=== PATIENT | female | born 1950 | race Caucasian/White ===

== ENCOUNTER 2016-05-28 09:14 | Day surgery (SDC) | payer MEDICARE ==
--- NOTE | ~2016-05-28 | OP ---
Record Of Operation [facility] [address] [place]. [address] NAME: BRITTANY MARC : 52 STATUS : [place] [facility] PAT#: [id number] AGE: 66 ADM/REG DATE : 05/28/16 MR#: [id number] REPORT SERV DATE: 05/28/16 DICTATED BY: RAMIN WHEELER DATE: 05/28/16 REPORT STATUS : Draft TRANSCRIBED BY: MODL DATE: 05/28/16 DATE OF PROCEDURE: 05/28/2016 PREOPERATIVE DIAGNOSIS: Bladder tumor. POSTOPERATIVE DIAGNOSIS: Bladder tumor. PROCEDURE PERFORMED: Cystoscopy, TURBT. SURGEON: Ramin Wheeler M.D. ANESTHESIA: General. ESTIMATED BLOOD LOSS: 10 mL. INDICATIONS: This is a 66-year-old white female with a history of gross hematuria, who has recently been referred for a 2 to 2.5 cm bladder tumor noted on CT scan. We are planning cystoscopy as well as TURBT. Risks of infection, bleeding, failure, and need for further surgery have been discussed. PROCEDURE IN DETAIL: The patient was taken to the operating room and underwent a general anesthetic. She was placed in the lithotomy position on the table, and her external genitalia were sterilely prepped and draped. The 22-S[place]ankan cystoscope sheath with 30-degree lens was inserted under direct vision per urethra with the aid of the video monitor. The urine in the bladder was bloody and had to be irrigated a few times to improve visibility. Single orifices were seen bilaterally and looked normal. There was a moderate cystocele. There was a solid-looking nonpapillary tumor on the anterior bladder wall measuring about 2.5 cm in size. This was broad based and had some necrotic portions. Outside of this, the remainder of the bladder mucosa looked normal throughout. The urethra was also inspected and was felt to be normal. The urethra was then dilated to 30-Sri Lankan using female sounds and the 28-Sri [place]ankan resectoscope sheath with Culloden obturator was advanced up into the bladder without difficulty. The hot loop was used to resect all of the visible portions of the tumor. It was difficult to determine whether the entire tumor had been resected as I carried the resection as deeply as I dared into the wall of the bladder without perforation. Following resection of the tumor, the entire resection bed was thoroughly fulgurated with the rollerball. I should mention that there was very minimal bleeding. Inspection of the wound revealed there to be no areas of bleeding. No overt visible protruding tumor was noted at this stage. There were no bladder perforations. The remainder of the bladder was reinspected with no new findings. The Invision Heart evacuator was used to remove all tumor chips from the bladder and the endoscopic apparatus was removed. An 18-S[place]ankan Awan catheter was placed to gravity drainage. A brief bimanual pelvic exam revealed a palpably normal urethra, bladder neck area, and right bladder wall. There was a question of some thickening of the left bladder. It was mobile; however, and not fixed. Record Of Operation [facility] [address] [facility] [place]. [address] NAME: BRITTANY MARC : 52 STATUS : [place] [facility] PAT#: [id number] AGE: 66 ADM/REG DATE : 05/28/16 MR#: [id number] REPORT SERV DATE: 05/28/16 DICTATED BY: RAMIN WHEELER DATE: 05/28/16 REPORT STATUS : Draft TRANSCRIBED BY: KARAN DATE: 05/28/16 SHANE/KARAN Ramin Wheeler M.D. / [id number] CC: Renae Dietrich M.D.
[~2016-05-28 09:14] MED LIST: COMBIVENT RESPIM4 GM INH; COZ25 PO; CYMBALTA30 PO; DULERA 100 MCG/13 GM INH; MOBIC7.5 PO; PRILOSEC40 MG PO
[2016-05-28 09:50] LABS: BASOPHILS 0.4 %; BASOPHILS ABSOLUTE 0.03 10/3/uL (0.0-0.16); EOSINOPHILS 0.4 %; EOSINOPHILS ABSOLUTE 0.03 10/3/uL (0.0-0.53); HEMATOCRIT 38.2 % (36.0-48.0); HEMOGLOBIN 13.3 g/dL (12.0-16.0); IMMATURE GRANULOCYTES 0.3 %; IMMATURE GRANULOCYTES ABSOLUTE 0.02 10/3/uL (0.0-0.11); LYMPHOCYTES 26.3 %; LYMPHOCYTES ABSOLUTE 1.83 10/3/uL (0.67-4.30); MEAN CORPUS HGB CONC 34.8 g/dL (32.0-36.0); MEAN CORPUSCULAR HEMOGLOB 33.3 pg (26.0-34.0); MEAN CORPUSCULAR VOLUME 95.5 fL (80-100); MEAN PLATELET VOLUME 8.9 fL (9.2-13.0); MONOCYTES 10.2 %; MONOCYTES ABSOLUTE 0.71 10/3/uL (0.21-1.20); NEUTROPHILS 62.4 %; NEUTROPHILS ABSOLUTE 4.34 10/3/uL (2.02-8.40); PLATELET COUNT 172 10/3/uL (150-400); RBC DISTRIBUTION WIDTH 12.6 % (12.0-16.0)
[2016-05-28 09:51] LABS: MANUAL DIFF NO %
[2016-05-28 09:55] LABS: PARTIAL THROMBO TIME 29.8 SEC (22.5-37.2); PROTIME (NOT ORD) 13.5 SEC (12.0-14.5)
[2016-05-28 10:08] LABS: BUN (BLOOD UREA NITROGEN) 13 MG/DL (6-23); CHLORIDE, SERUM 102 MMOL/L (96-112); CO2 (CARBON DIOXIDE) 28 MMOL/L (24-34); CREATININE 1.14 MG/DL (0.55-1.02); GFR AFRICAN AMERICAN 58 ML/MIN (>=60); GFR NON AFRICAN AMERICAN 50 ML/MIN (>=60); GLUCOSE, SERUM 127 MG/DL (60-99); POTASSIUM, SERUM 4.6 MMOL/L (3.5-5.3); SODIUM, SERUM 140 MMOL/L (135-148)
[2016-06-19] MEDS ORDERED: PROAIR HFA INH (11:23)
[2016-06-19] MEDS ORDERED: ZANAFLEX 4 MG TA4 MG PO (11:24)
[2016-06-19] MEDS ORDERED: 8 HOUR650 MG PO (11:24)
== END 2016-05-28 17:18 | disposition home or self-care (01) ==
LOC: SDC 09:14
PROVIDERS: Urology
PROC: 0TBB8ZZ Excision of Bladder, Via Natural or Artificial Opening Endoscopic (ICD-10-PCS; principal; 2016-05-28 11:00)
DX: C67.9 Malignant neoplasm of bladder, unspecified (principal); I10 Essential (primary) hypertension; J45.909 Unspecified asthma, uncomplicated; F41.9 Anxiety disorder, unspecified; K21.9 Gastro-esophageal reflux disease without esophagitis; Z90.89 Acquired absence of other organs; M19.90 Unspecified osteoarthritis, unspecified site; Z88.2 Allergy status to sulfonamides; Z88.5 Allergy status to narcotic agent; Z87.891 Personal history of nicotine dependence; Z79.899 Other long term (current) drug therapy
CPT/HCPCS: 71010; 80048; 85025; 85610; 85730; 88307; 88341; 88342; 93005; A9270-GY; J2250; J2370; J2405; J2710; J3010; J9280; Q9967

== ENCOUNTER 2016-06-30 06:41 | Inpatient (IN) | payer MEDICARE ==
[2016-06-22 15:36] LABS: BASOPHILS 0.4 %; BASOPHILS ABSOLUTE 0.02 10/3/uL (0.0-0.16); EOSINOPHILS 1.2 %; EOSINOPHILS ABSOLUTE 0.06 10/3/uL (0.0-0.53); HEMATOCRIT 35.1 % (36.0-48.0); HEMOGLOBIN 11.8 g/dL (12.0-16.0); IMMATURE GRANULOCYTES 0.2 %; IMMATURE GRANULOCYTES ABSOLUTE 0.01 10/3/uL (0.0-0.11); LYMPHOCYTES 41.5 %; LYMPHOCYTES ABSOLUTE 2.03 10/3/uL (0.67-4.30); MEAN CORPUS HGB CONC 33.6 g/dL (32.0-36.0); MEAN PLATELET VOLUME 8.9 fL (9.2-13.0); MONOCYTES 7.2 %; MONOCYTES ABSOLUTE 0.35 10/3/uL (0.21-1.20); NEUTROPHILS 49.5 %; NEUTROPHILS ABSOLUTE 2.42 10/3/uL (2.02-8.40); PLATELET COUNT 187 10/3/uL (150-400); RBC DISTRIBUTION WIDTH 12.7 % (12.0-16.0); RED CELL COUNT 3.58 10/6/uL (4.0-5.6); WHITE BLOOD CELLS 4.9 10/3/uL (4.5-10.5)
[2016-06-22 15:37] LABS: MANUAL DIFF NO %
[2016-06-22 15:40] LABS: PARTIAL THROMBO TIME 27.5 SEC (22.5-37.2)
[2016-06-22 15:49] LABS: BUN (BLOOD UREA NITROGEN) 13 MG/DL (6-23); CALCIUM, SERUM 10.1 MG/DL (8.5-10.4); CHLORIDE, SERUM 103 MMOL/L (96-112); CO2 (CARBON DIOXIDE) 24 MMOL/L (24-34); CREATININE 0.97 MG/DL (0.55-1.02); GFR AFRICAN AMERICAN 71 ML/MIN (>=60); GFR NON AFRICAN AMERICAN 61 ML/MIN (>=60); GLUCOSE, SERUM 83 MG/DL (60-99); POTASSIUM, SERUM 4.4 MMOL/L (3.5-5.3); SODIUM, SERUM 138 MMOL/L (135-148)
--- NOTE | ~2016-06-30 | HP ---
History And Physical [facility] [id number] [place]. [address] NAME: BRITTANY MARC : 52 STATUS : [facility]M [facility]#: [id number] AGE: 66 ADM/REG DATE : 06/30/16 MR#: [id number] REPORT SERV DATE: 06/30/16 DICTATED BY: SUDHAKAR BECK DATE: 06/30/16 REPORT STATUS : Draft TRANSCRIBED BY: MODL DATE: 06/30/16 DATE OF ADMISSION: 06/30/2016 CHIEF COMPLAINT: Bladder cancer, T2 N0. HISTORY OF PRESENT ILLNESS: Ms. Marc is a 66-year-old who had intermittent gross hematuria for several months. This was painless. She was evaluated with a renal bladder ultrasound. A CT scan showed a solid enhancing bladder mass along the anterior wall. Dr. Shayan Justice performed transurethral resection of bladder tumor on 05/28/2016. Unfortunately, this showed high-grade muscle-invasive bladder cancer with glandular differentiation. Lymphovascular invasion was present as well as muscularis propria invasion. She feels well. She denies back pain or weight loss. There was no adenopathy or hydronephrosis on staging CT. PAST MEDICAL HISTORY: Hypertension, asthma, osteoarthritis, Nnppa-Lrmec-Trxwo syndrome. ALLERGIES: SULFA AND CODEINE. SOCIAL HISTORY: . Quit smoking 30 years ago. MEDICATIONS: Losartan, omeprazole, Combivent, duloxetine, albuterol inhaler. REVIEW OF SYSTEMS: No fevers, chills, nausea, vomiting, flank pain, hydronephrosis, chest pain, or shortness of breath. PHYSICAL EXAMINATION: VITAL SIGNS: Vitals per intake sheet. Afebrile. GENERAL: A pleasant 66-year-old, in no acute distress. HEENT: Sclerae anicteric. LUNGS: Clear. HEART: Regular rhythm. CHEST: Clear anteriorly. ABDOMEN: Soft, nontender, nondistended. No palpable mass. Right-sided stomal site is marked by a wound nurse at approximately the level of the umbilicus to the right of midline. EXTREMITIES: No lower extremity edema. LABORATORY DATA: Alkaline phosphatase was normal. LFTs are normal. Hematocrit 35, platelets 187. Creatinine 0.97. IMAGING: CT scan dated 05/14/2016 shows a left anterior wall bladder mass, no retroperitoneal adenopathy. PATHOLOGY: TURBT from 05/28/2016 shows muscle-invasive high-grade urothelial cancer with glandular differentiation. There was muscularis propria invasion and lymphovascular invasion. History And Physical [address] [address] NAME: BRITTANY MARC : 52 STATUS : ADM IN PAT#: [id number] AGE: 66 ADM/REG DATE : 06/30/16 MR#: [id number] REPORT SERV DATE: 06/30/16 DICTATED BY: SUDHAKAR BECK DATE: 06/30/16 REPORT STATUS : Draft TRANSCRIBED BY: KARAN DATE: 06/30/16 IMPRESSION: Bladder cancer, high-grade T2 N0 M0. PLAN: Ms. Marc presents for radical cystectomy with pelvic lymphadenectomy and en bloc hysterectomy. She understands the risk of bleeding, infection, wound complications, stomal complication, urine leak, ileus, tumor recurrence, and anastomotic stricture. She and her agree to proceed. [facility]/KARAN Sudhakar Beck M.D. / [id number] CC: Renae Spence M.D.
--- NOTE | ~2016-06-30 | OP ---
Record Of Operation [facility] [address] [place]. [address] NAME: BRITTANY MARC : 52 STATUS : ADM IN PAT#: [id number] AGE: 66 ADM/REG DATE : 06/30/16 MR#: [id number] REPORT SERV DATE: 06/30/16 DICTATED BY: SUDHAKAR BECK DATE: 06/30/16 REPORT STATUS : Draft TRANSCRIBED BY: MODL DATE: 06/30/16 DATE OF PROCEDURE: 06/30/2016 PREOPERATIVE DIAGNOSIS: Bladder cancer, T2, N0, M0. POSTOPERATIVE DIAGNOSIS: Bladder cancer, T2, N0, M0. PROCEDURE PERFORMED: 1. Radical cystectomy. 2. Bilateral pelvic lymphadenectomy. 3. Ileal conduit urinary diversion. SURGEON: Sudhakar Beck M.D. ANESTHESIA: General. COMPLICATIONS: A small vaginotomy was closed primarily. SPECIMEN: 1. Bladder. 2. Right and left pelvic lymph nodes (obturator and internal iliac). ESTIMATED BLOOD LOSS: 600 mL. DRAINS: 1. NG tube. 2. Bilateral 7-[place] ureterointestinal anastomotic stent. 3. Pantera-Simmons. INDICATION: Mrs. Marc is a 66-year-old with gross hematuria. She was found to have a high grade muscle invasive bladder cancer with glandular differentiation. She presents for radical cystectomy. I discussed removing the uterus en block, the bladder mobilized easily off the anterior vaginal wall. Anterior tumor was on the anterior wall of the bladder as such, en block hysterectomy was unnecessary. TECHNIQUE: She received Mefoxin in the preop. She was brought to the operating room. General endotracheal anesthesia was administered. The lower abdomen, genitals and perineum were shaved, prepped, and draped in the lithotomy position. A Awan catheter was placed,this was 16-[place] Korean. I re-gloved. A lower midline incision was made from the umbilicus to the pubic symphysis. There was copious subcutaneous fat,this was divided with Bovie. The abdominal wall fascia was divided in the midline. The peritoneal cavity was entered. There was copious intraperitoneal fat. There were only minimal adhesions between the sigmoid and the uterus. Lower abdominal contents were all unremarkable. The bowel were packed superiorly. Adhesions between the redundant sigmoid colon and the posterior cul-de- sac were divided sharply. I developed the anterior peritoneal reflection, including the urachus, the urachus were divided. The retropubic space was mobilized with blunt Record Of Operation [facility] [id number] [place]. [address] NAME: BRITTANY MARC : 52 STATUS : ADM IN PAT#: [id number] AGE: 66 ADM/REG DATE : 06/30/16 MR#: [id number] REPORT SERV DATE: 06/30/16 DICTATED BY: SUDHAKAR BECK DATE: 06/30/16 REPORT STATUS : Draft TRANSCRIBED BY: KARAN DATE: 06/30/16 dissection, Bovie, and a LigaSure. At this point, I mobilized the right ureter as it coursed over the iliac vessels. This was circumferentially mobilized. The ovary was dissected away from the fallopian tube. The right ovary was pexed to the right lateral wall. The right ureter was dissected down to its insertion into the ureteral hiatus. At this point, the ureter was divided and clipped. The distal ureteral stump was oversewn with 0 Vicryl. The ureter was spatulated for 1 cm and 3- 0 Vicryl stay suture was placed for no touch retraction on the ureter later. In a similar fashion, the left ureter was identified coursing over the iliac vessels. This was circumferentially mobilized down to its insertion in the bladder. The left ovary and ovarian vessels were left in situ. The ureter was clipped and divided at its insertion to the bladder base. The left ureter was spatulated for 1 cm and 3-0 Vicryl traction stitch was placed in a similar fashion. I passed the left ureter along the sigmoid promontory underneath the colon into the right lower quadrant. These were left to drain spontaneously the rest of the case. I divided the uterine arteries on the right and the left with the LigaSure. The superior vesicle pedicles were divided with LigaSure. I incised the peritoneum and cul-de-sac and mobilized the plane between the cervix and bladder base bluntly. I divided the inferior vesicle pedicles with LigaSure. The base of the bladder and trigone were swept off the pubocervical fascia. At this point, I divided the clitoral vein with the LigaSure. The remaining lateral attachments at the bladder base were divided with LigaSure. I was able to mobilize the urethra and palpate this well below the bulb of the Awan balloon. At approximately the midpoint of the urethra, the Bovie was used to transect the urethra. The remaining attachments between the bladder base and pubocervical fascia were divided. Specimen was passed off the field. I inspected the pubocervical fascia, there was a rent in the anterior vaginal wall just cephalad to the bladder neck. This was closed with interrupted #1 Vicryl. This closure was water tight. I over sewed the urethral stump. Additional hemostasis in the pelvis was obtained with clips and Bovie cautery. Surgicel was placed as well. The right pelvic lymph nodes were mobilized with blunt dissection, clips, and a limited LigaSure. The node of [place] was the distal extent. The mid point of the upper aspect of the external iliac vein was the superior extent. Proximal extent was the bifurcation of the iliacs. The obturator vessels and obturator nerve were identified and left in place. Right obturator fossa was irrigated and hemostasis was confirmed. In similar fashion, the left obturator and internal iliac lymph nodes were dissected. No lymph nodes were enlarged. Again, hemostasis was obtained with clips. At this point, Dr. Garcia scrubbed into the case, harvested a suitable segment of the terminal ilium. After bowel continuity had been reestablished, I scrubbed into the case. The retroperitoneal end of the conduit was oversewn, so as to exclude the staple line, this Record Of Operation [facility] [address] [place]. [address] NAME: BRITTANY MARC : 52 STATUS : ADM IN [facility]#: [id number] AGE: 66 ADM/REG DATE : 06/30/16 MR#: [id number] REPORT SERV DATE: 06/30/16 DICTATED BY: SUDHAKAR BECK DATE: 06/30/16 REPORT STATUS : Draft TRANSCRIBED BY: MODL DATE: 06/30/16 was with 2-0 Vicryl. The stomal end of the conduit was opened, I irrigated out the enteric contents without suction and changed suckers. The left ureter was anastomosed to the retroperitoneal end of the conduit in a standard Cierra type fashion. Approximately 10 anastomotic sutures were placed. This was a tension-free osrwvx-qf-hsoyoz anastomosis. I placed a 7-[place] Korean single-J stent, prior to completing the anastomosis. In a similar fashion, the right ureter was anastomosed to the proximal third of the conduit. Again, this was a standard Cierra type anastomosis. I used 4-0 PDS suture for this anastomosis. Both stents were secured at the skin level temporarily with chromic, and secured with 4-0 nylon at the end of the case at the skin level. Sponge and needle counts were correct. The pelvis was irrigated. I placed a Pantera-Simmons through a separate stab incision in the left lower quadrant. There was not sufficient omentum to bring it down into the pelvis. The right ovary was left next to the pelvic sidewall superior/lateral to the external iliac vessels. I excised the column of skin and subcutaneous fat at the previous marked stoma site. The fascia was divided linearly. Muscle splitting was performed, but no muscle was divided. The posterior fascia was incised with Bovie. I delivered the stents and then the conduit through the stomal opening. The conduit was secured at the anterior fascial level with interrupted 2-0 Vicryl. The stoma was reuben-budded, so it was matured in a standard [place] fashion with interrupted 3-0 Vicryl. The stents were secured at the skin level with 4-0 nylon. I closed the abdominal wall fascia with running #1 Vicryl with additional 0 PDS internal retention sutures. The wound was irrigated. The subcutaneous fat was closed with interrupted running Vicryl. The skin was closed with a subcuticular Monocryl. She was extubated and taken to the recovery room in satisfactory condition. The plan is for five days of NG tube drainage while the expected ileus resolves. KARLA/KARAN Sudhakar Beck M.D. / [id number] CC: Sudhakar Beck M.D.
--- NOTE | ~2016-06-30 | OP ---
Record Of Operation [facility] [address] [place]. [address] NAME: BRITTANY MARC : 52 STATUS : ADM IN PAT#: [id number] AGE: 66 ADM/REG DATE : 06/30/16 MR#: [id number] REPORT SERV DATE: 07/01/16 DICTATED BY: ENOCH GARCIA DATE: 07/01/16 REPORT STATUS : Draft TRANSCRIBED BY: MODL DATE: 07/01/16 DATE OF PROCEDURE: 06/30/2016 PREOPERATIVE DIAGNOSIS: Bladder cancer. POSTOPERATIVE DIAGNOSIS: Bladder cancer. OPERATION PERFORMED: Ileal harvest for conduit. SURGEON: Enoch Garcia M.D. ANESTHESIA: General. ESTIMATED BLOOD LOSS: Less than 10 mL for this portion of procedure. IV FLUIDS: Adequate. DESCRIPTION OF OPERATION: The patient had undergone a cystectomy. At the end of the operation, she had a lower midline incision. The small bowel was run from the ileocecal valve proximal. It all appeared to be normal. We went approximately 20 cm back from the ileocecal valve and a silk suture was placed. We then measured approximately 20 cm proximal to this and marked this area. The bowel was then transected using a 75 WILMAN stapler just distal to the silk suture. We then transected with a 75 WILMAN stapler, 20 cm proximal. The mesentery was taken down partially using the LigaSure device. Once, we had the mesentery adequately mobilized, we then performed a kdbz-fz-hysi functional end-to-end small bowel anastomosis. We placed a posterior row of 3-0 silk Lembert sutures. We cut the corners of the staple lines and fired a WILMAN 75 stapler down to create a common enterotomy. We closed the butt end of the common enterotomy using a TA 60 stapler. We then placed an anterior row of 3-0 silk Lembert sutures. The mesentery was then partially closed. We palpated the anastomosis which was widely patent. The conduit easily reached the skin as well as the pelvis. At this point, Dr. Conner came in, he evaluated the conduit and felt like it was adequate. The remainder the procedure was turned over to him for completion. [facility]/KARAN Enoch Garcia M.D. / [id number] CC: Renae Spence M.D.
--- NOTE | ~2016-06-30 | DS ---
Discharge Summary [facility] [address] [place]. [address] NAME: BRITTANY MARC : 52 STATUS : DIS IN PAT#: [id number] AGE: 66 ADM/REG DATE : 06/30/16 MR#: [id number] REPORT SERV DATE: 07/16/16 DICTATED BY: SUDHAKAR BECK DATE: 07/15/16 REPORT STATUS : Draft TRANSCRIBED BY: MODL DATE: 07/15/16 Data Collection from hospitalization DISCHARGE DIAGNOSIS(ES): 1. Bladder cancer, T2, N0, M0. 2. Hypertension. 3. Asthma. 4. Osteoarthritis. 5. Pbodk-Kjkki-Kcveh syndrome. CONSULTATIONS: Enoch Garcia M.D. and Araseli Liz. PROCEDURES PERFORMED: 1. Radical cystectomy, bilateral pelvic lymphadenectomy, ileal conduit urinary diversion, 06/30/2016. 2. Ileal harvest for conduit, 06/30/2016, by Dr. Enoch Garcia. PATHOLOGY: 1. Urinary bladder cystectomy, prominent repair response from the previous transurethral resection, no residual carcinoma identified, right pelvic lymph nodes dissection 0 of 5 lymph nodes involved by tumor. 2. Left pelvic lymph node dissection, 0 of 3 lymph nodes involved by tumor. MEDICATIONS: Cymbalta 30 mg every morning; Cozaar 25 mg every morning; Prilosec 40 mg every evening; Tylenol 650 mg every 8 hours as needed; Mobic 7.5 mg daily, resume three days after discharge; ProAir two puffs as needed; Zanaflex 4 mg three times daily as needed; and Percocet 7.5/325 one every 4 hours as needed. CONDITION AT DISCHARGE: Upon discharge, she did appear to be doing well and had no complaints. DISPOSITION: She had been discharged home to continue a regular diet with activity as tolerated. She was to follow up with me in the office on 07/20/2016. HOSPITAL COURSE: This 66-year-old female had intermittent gross hematuria for several months. This was painless. She was evaluated with a renal bladder ultrasound. A CT scan showed a solid enhancing bladder mass along the anterior wall. Dr. Shayan Justice performed transurethral resection of bladder tumor on 05/28/2016. Unfortunately, this showed high- grade muscle-invasive bladder cancer with glandular differentiation, lymphovascular invasion was present, as well as muscularis propria invasion. She had felt well. She denied back pain or weight loss. There was no adenopathy or hydronephrosis on staging CT. She was now admitted for further surgery and treatment. Upon admission to the hospital, she had been taken to the operating room by myself and Dr. Enoch Garcia where she did undergo the above procedures. She had tolerated this well and was transferred to the recovery room. On postop day #1, she was awake and alert and did appear to be doing well. Her vital signs were stable. However, she was mildly tachycardiac. On postop day #2, she did continue in stable condition and did state that her pain was under better control. She was encouraged to use the TUBE MILL OPERATOR. Her hematocrit was at 28. She did have a good urinary output. She had Discharge Summary [place] [id number] [facility] [place]. [address] NAME: BRITTANY MARC : 52 STATUS : DIS IN PAT#: [id number] AGE: 66 ADM/REG DATE : 06/30/16 MR#: [id number] REPORT SERV DATE: 07/16/16 DICTATED BY: SUDHAKAR BECK DATE: 07/15/16 REPORT STATUS : Draft TRANSCRIBED BY: KARAN DATE: 07/15/16 been seen by the hospitalist group with Araseli Liz for medical management as she was noted to have tachycardia. She denied any chest pain or shortness of breath, however, did have some complaints of incisional pain. She had been placed on Ativan as needed for possible alcohol withdrawal. Her hemoglobin was to be monitored as her hemoglobin on 06/22/2016 was at 11.8 and on 07/02/2016 was at 8.1. On postop day #3, she was afebrile and her vital signs were stable. Her pain was controlled with the epidural. She was encouraged to ambulate. Her abdomen was noted to be mildly distended and tympanitic. She did undergo transfusion with two units of packed red blood cells. On 07/04/2016, she had complaints of right knee pain. She was afebrile, and her vital signs were stable. The NG tube had been removed. However, she was noted to have a poor appetite. She was encouraged to walk more. On 07/05/2016, she had complaints of rectal and vaginal bleeding. She did state the rectal bleeding began after the suppository. She had been tolerating sips. She was afebrile, and her vital signs were stable. It was felt that she may need a Gynecology evaluation. She was continued on clear liquids and was to be observed for further rectal and vaginal bleeding. On 07/06/2016, she did appear to be doing well and had no further bleeding noted. She was afebrile and her vital signs had remained stable. Heparin was placed on hold. Her stoma appeared to be pink and viable. On 07/07/2016, she did remain in stable condition and had continued to do well. As she was noted to be doing well, she was then discharged on 07/08/2016 with the above instructions. Information collected by: Rogers Kern.I.T. I submit the above information as my discharge summary. DESIRAE/KARAN uSdhakar Beck M.D. / [id number] CC: Renae Hernandez M.D.
[~2016-06-30 06:41] MED LIST changes: +8 HOUR650 MG PO; +PROAIR HFA INH; +ZANAFLEX 4 MG TA4 MG PO
[2016-06-30 16:55] LABS: HEMATOCRIT 26.6 % (36.0-48.0); HEMOGLOBIN 9.1 g/dL (12.0-16.0)
[2016-07-01 04:50] LABS: BASOPHILS 0 %; EOSINOPHILS 0 %; HEMOGLOBIN 8.5 g/dL (12.0-16.0); IMMATURE GRANULOCYTES 0.2 %; IMMATURE GRANULOCYTES ABSOLUTE 0.01 10/3/uL (0.0-0.11); LYMPHOCYTES 21.9 %; MEAN PLATELET VOLUME 8.3 fL (9.2-13.0); MONOCYTES ABSOLUTE 0.71 10/3/uL (0.21-1.20); NEUTROPHILS 65.9 %; NEUTROPHILS ABSOLUTE 3.92 10/3/uL (2.02-8.40); PLATELET COUNT 138 10/3/uL (150-400); WHITE BLOOD CELLS 5.9 10/3/uL (4.5-10.5)
[2016-07-01 04:59] LABS: MANUAL DIFF NO %
[2016-07-01 05:06] LABS: BUN (BLOOD UREA NITROGEN) 11 MG/DL (6-23); CALCIUM, SERUM 8.4 MG/DL (8.5-10.4); CHLORIDE, SERUM 105 MMOL/L (96-112); CO2 (CARBON DIOXIDE) 26 MMOL/L (24-34); CREATININE 1.64 MG/DL (0.55-1.02); GFR AFRICAN AMERICAN 38 ML/MIN (>=60); GFR NON AFRICAN AMERICAN 32 ML/MIN (>=60); GLUCOSE, SERUM 199 MG/DL (60-99); POTASSIUM, SERUM 4.2 MMOL/L (3.5-5.3); SODIUM, SERUM 138 MMOL/L (135-148)
[2016-07-01 16:38] LABS: HEMATOCRIT 25.5 % (36.0-48.0); HEMOGLOBIN 8.8 g/dL (12.0-16.0)
[2016-07-02 05:56] LABS: BASOPHILS 0.3 %; BASOPHILS ABSOLUTE 0.02 10/3/uL (0.0-0.16); EOSINOPHILS 0.6 %; EOSINOPHILS ABSOLUTE 0.04 10/3/uL (0.0-0.53); HEMATOCRIT 24.1 % (36.0-48.0); HEMOGLOBIN 8.1 g/dL (12.0-16.0); IMMATURE GRANULOCYTES 0.3 %; IMMATURE GRANULOCYTES ABSOLUTE 0.02 10/3/uL (0.0-0.11); LYMPHOCYTES 26.2 %; LYMPHOCYTES ABSOLUTE 1.87 10/3/uL (0.67-4.30); MEAN CORPUS HGB CONC 33.6 g/dL (32.0-36.0); MEAN CORPUSCULAR HEMOGLOB 33.9 pg (26.0-34.0); MEAN CORPUSCULAR VOLUME 100.8 fL (80-100); MEAN PLATELET VOLUME 8.6 fL (9.2-13.0); MONOCYTES 11.6 %; MONOCYTES ABSOLUTE 0.83 10/3/uL (0.21-1.20); NEUTROPHILS ABSOLUTE 4.35 10/3/uL (2.02-8.40); PLATELET COUNT 163 10/3/uL (150-400); RBC DISTRIBUTION WIDTH 12.9 % (12.0-16.0); RED CELL COUNT 2.39 10/6/uL (4.0-5.6); WHITE BLOOD CELLS 7.1 10/3/uL (4.5-10.5)
[2016-07-02 06:05] LABS: MANUAL DIFF NO %
[2016-07-02 06:19] LABS: BUN (BLOOD UREA NITROGEN) 6 MG/DL (6-23); CALCIUM, SERUM 8.6 MG/DL (8.5-10.4); CHLORIDE, SERUM 107 MMOL/L (96-112); CO2 (CARBON DIOXIDE) 26 MMOL/L (24-34); CREATININE 0.91 MG/DL (0.55-1.02); GFR AFRICAN AMERICAN 77 ML/MIN (>=60); GFR NON AFRICAN AMERICAN 66 ML/MIN (>=60); GLUCOSE, SERUM 114 MG/DL (60-99); POTASSIUM, SERUM 4.1 MMOL/L (3.5-5.3); SODIUM, SERUM 139 MMOL/L (135-148)
[2016-07-02 15:06] LABS: TROPONIN I <0.02 NG/ML (<0.05)
[2016-07-02 15:46] LABS: TROPONIN I <0.02 NG/ML (<0.05)
[2016-07-03 06:35] LABS: HEMATOCRIT 21.9 % (36.0-48.0); HEMOGLOBIN 7.6 g/dL (12.0-16.0)
[2016-07-03 06:52] LABS: BUN (BLOOD UREA NITROGEN) 7 MG/DL (6-23); CALCIUM, SERUM 8.9 MG/DL (8.5-10.4); CHLORIDE, SERUM 105 MMOL/L (96-112); CO2 (CARBON DIOXIDE) 25 MMOL/L (24-34); CREATININE 0.94 MG/DL (0.55-1.02); GFR AFRICAN AMERICAN 74 ML/MIN (>=60); GFR NON AFRICAN AMERICAN 64 ML/MIN (>=60); GLUCOSE, SERUM 106 MG/DL (60-99); POTASSIUM, SERUM 3.9 MMOL/L (3.5-5.3); SODIUM, SERUM 138 MMOL/L (135-148); TROPONIN I <0.02 NG/ML (<0.05)
[2016-07-03 08:39] LABS: FOLATE 44.7 NG/ML (>5.2)
[2016-07-04 05:05] LABS: BUN (BLOOD UREA NITROGEN) 9 MG/DL (6-23); CALCIUM, SERUM 9.1 MG/DL (8.5-10.4); CHLORIDE, SERUM 104 MMOL/L (96-112); CO2 (CARBON DIOXIDE) 22 MMOL/L (24-34); CREATININE 0.96 MG/DL (0.55-1.02); GFR AFRICAN AMERICAN 72 ML/MIN (>=60); GFR NON AFRICAN AMERICAN 62 ML/MIN (>=60); GLUCOSE, SERUM 98 MG/DL (60-99); POTASSIUM, SERUM 3.6 MMOL/L (3.5-5.3); SODIUM, SERUM 138 MMOL/L (135-148)
[2016-07-04 06:18] LABS: BASOPHILS 0.3 %; BASOPHILS ABSOLUTE 0.02 10/3/uL (0.0-0.16); EOSINOPHILS 1.2 %; EOSINOPHILS ABSOLUTE 0.07 10/3/uL (0.0-0.53); HEMATOCRIT 30.2 % (36.0-48.0); HEMOGLOBIN 10.8 g/dL (12.0-16.0); IMMATURE GRANULOCYTES ABSOLUTE 0.06 10/3/uL (0.0-0.11); LYMPHOCYTES 23.7 %; MANUAL DIFF NO %; MEAN CORPUS HGB CONC 35.8 g/dL (32.0-36.0); MEAN CORPUSCULAR HEMOGLOB 31.8 pg (26.0-34.0); MEAN CORPUSCULAR VOLUME 88.8 fL (80-100); MEAN PLATELET VOLUME 8.5 fL (9.2-13.0); MONOCYTES 10.7 %; MONOCYTES ABSOLUTE 0.63 10/3/uL (0.21-1.20); NEUTROPHILS 63.1 %; NEUTROPHILS ABSOLUTE 3.73 10/3/uL (2.02-8.40); PLATELET COUNT 170 10/3/uL (150-400); RBC DISTRIBUTION WIDTH 15.6 % (12.0-16.0); WHITE BLOOD CELLS 5.9 10/3/uL (4.5-10.5)
[2016-07-05 06:58] LABS: HEMOGLOBIN 11.9 g/dL (12.0-16.0); MEAN CORPUS HGB CONC 35.7 g/dL (32.0-36.0); MEAN CORPUSCULAR VOLUME 89.5 fL (80-100); MEAN PLATELET VOLUME 8.8 fL (9.2-13.0); PLATELET COUNT 200 10/3/uL (150-400); RBC DISTRIBUTION WIDTH 15.3 % (12.0-16.0); RED CELL COUNT 3.72 10/6/uL (4.0-5.6); WHITE BLOOD CELLS 7.3 10/3/uL (4.5-10.5)
[2016-07-05 06:59] LABS: HEMATOCRIT 33.3 % (36.0-48.0); MANUAL DIFF YES %
[2016-07-05 07:07] LABS: BUN (BLOOD UREA NITROGEN) 9 MG/DL (6-23); CHLORIDE, SERUM 104 MMOL/L (96-112); CO2 (CARBON DIOXIDE) 20 MMOL/L (24-34); CREATININE 0.81 MG/DL (0.55-1.02); GFR AFRICAN AMERICAN 88 ML/MIN (>=60); GFR NON AFRICAN AMERICAN 76 ML/MIN (>=60); GLUCOSE, SERUM 92 MG/DL (60-99); POTASSIUM, SERUM 4.1 MMOL/L (3.5-5.3); SODIUM, SERUM 139 MMOL/L (135-148)
[2016-07-05 07:40] LABS: BAND NEUTROPHILS 5 %; EOSINOPHILS 1 %; EOSINOPHILS ABSOLUTE (CALC) 0.07 10/3/uL (0.0-0.53); LYMPHOCYTES 26 %; MONOCYTES 20 %; MONOCYTES ABSOLUTE (CALC) 1.46 10/3/uL (0.21-1.20); NEUTROPHILS ABSOLUTE (CALC) 3.87 10/3/uL (2.02-8.40); PLATELET ESTIMATE ADQ (ADEQUATE); POLYCHROMASIA 1+ (2-5/OIF) (0-1/OIF); SEGMENTED NEUTROPHIL (0) 48 %; TEARDROP SHAPED RBCS OCC (0-2/OIF); TOTAL NUCLEATED CELLS 100; TOXIC GRANULATION SLT
[2016-07-06 05:28] LABS: BASOPHILS 0.7 %; BASOPHILS ABSOLUTE 0.04 10/3/uL (0.0-0.16); EOSINOPHILS 1.8 %; HEMOGLOBIN 10.3 g/dL (12.0-16.0); IMMATURE GRANULOCYTES 1.6 %; IMMATURE GRANULOCYTES ABSOLUTE 0.09 10/3/uL (0.0-0.11); LYMPHOCYTES 27.9 %; LYMPHOCYTES ABSOLUTE 1.58 10/3/uL (0.67-4.30); MEAN CORPUS HGB CONC 35.5 g/dL (32.0-36.0); MEAN CORPUSCULAR HEMOGLOB 32.2 pg (26.0-34.0); MEAN CORPUSCULAR VOLUME 90.6 fL (80-100); MEAN PLATELET VOLUME 8.8 fL (9.2-13.0); MONOCYTES 14.5 %; MONOCYTES ABSOLUTE 0.82 10/3/uL (0.21-1.20); NEUTROPHILS 53.5 %; NEUTROPHILS ABSOLUTE 3.04 10/3/uL (2.02-8.40); PLATELET COUNT 246 10/3/uL (150-400); RBC DISTRIBUTION WIDTH 14.9 % (12.0-16.0); WHITE BLOOD CELLS 5.7 10/3/uL (4.5-10.5)
[2016-07-06 05:30] LABS: MANUAL DIFF NO %
[2016-07-06 05:41] LABS: BUN (BLOOD UREA NITROGEN) 11 MG/DL (6-23); CALCIUM, SERUM 9.3 MG/DL (8.5-10.4); CHLORIDE, SERUM 106 MMOL/L (96-112); CO2 (CARBON DIOXIDE) 22 MMOL/L (24-34); CREATININE 0.87 MG/DL (0.55-1.02); GFR AFRICAN AMERICAN 81 ML/MIN (>=60); GFR NON AFRICAN AMERICAN 70 ML/MIN (>=60); GLUCOSE, SERUM 104 MG/DL (60-99); POTASSIUM, SERUM 3.4 MMOL/L (3.5-5.3); SODIUM, SERUM 137 MMOL/L (135-148)
[2016-07-07 05:38] LABS: BASOPHILS 0.5 %; BASOPHILS ABSOLUTE 0.03 10/3/uL (0.0-0.16); EOSINOPHILS ABSOLUTE 0.11 10/3/uL (0.0-0.53); HEMATOCRIT 29.2 % (36.0-48.0); IMMATURE GRANULOCYTES 1.1 %; IMMATURE GRANULOCYTES ABSOLUTE 0.06 10/3/uL (0.0-0.11); LYMPHOCYTES 29.7 %; LYMPHOCYTES ABSOLUTE 1.65 10/3/uL (0.67-4.30); MEAN CORPUS HGB CONC 34.2 g/dL (32.0-36.0); MEAN CORPUSCULAR HEMOGLOB 31.4 pg (26.0-34.0); MEAN CORPUSCULAR VOLUME 91.8 fL (80-100); MEAN PLATELET VOLUME 8.7 fL (9.2-13.0); MONOCYTES 13.3 %; MONOCYTES ABSOLUTE 0.74 10/3/uL (0.21-1.20); NEUTROPHILS 53.4 %; NEUTROPHILS ABSOLUTE 2.96 10/3/uL (2.02-8.40); PLATELET COUNT 266 10/3/uL (150-400); RBC DISTRIBUTION WIDTH 14.3 % (12.0-16.0); RED CELL COUNT 3.18 10/6/uL (4.0-5.6); WHITE BLOOD CELLS 5.6 10/3/uL (4.5-10.5)
[2016-07-07 05:39] LABS: MANUAL DIFF NO %
[2016-07-07 05:43] LABS: BUN (BLOOD UREA NITROGEN) 11 MG/DL (6-23); CHLORIDE, SERUM 108 MMOL/L (96-112); CO2 (CARBON DIOXIDE) 24 MMOL/L (24-34); CREATININE 0.88 MG/DL (0.55-1.02); GFR AFRICAN AMERICAN 80 ML/MIN (>=60); GFR NON AFRICAN AMERICAN 69 ML/MIN (>=60); GLUCOSE, SERUM 123 MG/DL (60-99); POTASSIUM, SERUM 3.8 MMOL/L (3.5-5.3); SODIUM, SERUM 142 MMOL/L (135-148)
[2016-07-08 06:34] LABS: BASOPHILS 0.3 %; BASOPHILS ABSOLUTE 0.02 10/3/uL (0.0-0.16); EOSINOPHILS 2.4 %; EOSINOPHILS ABSOLUTE 0.14 10/3/uL (0.0-0.53); HEMATOCRIT 30.8 % (36.0-48.0); HEMOGLOBIN 10.5 g/dL (12.0-16.0); IMMATURE GRANULOCYTES 0.9 %; IMMATURE GRANULOCYTES ABSOLUTE 0.05 10/3/uL (0.0-0.11); LYMPHOCYTES 22.2 %; LYMPHOCYTES ABSOLUTE 1.29 10/3/uL (0.67-4.30); MANUAL DIFF NO %; MEAN CORPUS HGB CONC 34.1 g/dL (32.0-36.0); MEAN CORPUSCULAR HEMOGLOB 31.8 pg (26.0-34.0); MEAN CORPUSCULAR VOLUME 93.3 fL (80-100); MEAN PLATELET VOLUME 8.5 fL (9.2-13.0); MONOCYTES 14.8 %; MONOCYTES ABSOLUTE 0.86 10/3/uL (0.21-1.20); NEUTROPHILS 59.4 %; NEUTROPHILS ABSOLUTE 3.46 10/3/uL (2.02-8.40); PLATELET COUNT 267 10/3/uL (150-400); WHITE BLOOD CELLS 5.8 10/3/uL (4.5-10.5)
[2016-07-08 06:48] LABS: BUN (BLOOD UREA NITROGEN) 9 MG/DL (6-23); CALCIUM, SERUM 9.2 MG/DL (8.5-10.4); CHLORIDE, SERUM 106 MMOL/L (96-112); CO2 (CARBON DIOXIDE) 28 MMOL/L (24-34); CREATININE 0.97 MG/DL (0.55-1.02); GFR AFRICAN AMERICAN 71 ML/MIN (>=60); GFR NON AFRICAN AMERICAN 61 ML/MIN (>=60); GLUCOSE, SERUM 114 MG/DL (60-99); POTASSIUM, SERUM 4.2 MMOL/L (3.5-5.3); SODIUM, SERUM 138 MMOL/L (135-148)
[2016-07-08] MEDS ORDERED: PERCOCET 7.5/321 TAB PO (14:32)
== END 2016-07-08 16:00 | disposition home health service (06) | DRG 654 ==
LOC: SDC/OF 06:41 → MIC 17:31 → 4SO 07-01 14:03
PROVIDERS: Hospitalist; Internal Medicine Pulmonary Disease; Specialist; Surgery; Urology
PROC: 0T1 Urinary System, Bypass (ICD-10-PCS; 2016-06-30)
PROC: 0DBB0ZZ Excision of Ileum, Open Approach (ICD-10-PCS; 2016-06-30)
PROC: 0T780DZ Dilation of Bilateral Ureters with Intraluminal Device, Open Approach (ICD-10-PCS; 2016-06-30)
PROC: 0TTB0ZZ Resection of Bladder, Open Approach (ICD-10-PCS; principal; 2016-06-30 08:45)
PROC: 07BC0ZZ Excision of Pelvis Lymphatic, Open Approach (ICD-10-PCS; 2016-06-30 08:45)
PROC: 30233N1 Transfusion of Nonautologous Red Blood Cells into Peripheral Vein, Percutaneous Approach (ICD-10-PCS; 2016-07-03)
DX: C67.2 Malignant neoplasm of lateral wall of bladder (principal); C77.5 Secondary and unspecified malignant neoplasm of intrapelvic lymph nodes; N17.9 Acute kidney failure, unspecified; I78.0 Hereditary hemorrhagic telangiectasia; K56.7 Ileus, unspecified; D62 Acute posthemorrhagic anemia; I10 Essential (primary) hypertension; J45.909 Unspecified asthma, uncomplicated; M19.90 Unspecified osteoarthritis, unspecified site; Z88.2 Allergy status to sulfonamides; Z88.5 Allergy status to narcotic agent; Z79.899 Other long term (current) drug therapy; Z87.891 Personal history of nicotine dependence; K21.9 Gastro-esophageal reflux disease without esophagitis; F32.9 Major depressive disorder, single episode, unspecified; F41.9 Anxiety disorder, unspecified; R00.0 Tachycardia, unspecified; K58.9 Irritable bowel syndrome, unspecified; Z72.89 Other problems related to lifestyle
CPT/HCPCS: 36415; 74000; 80048; 82570; 82607; 82746; 83735; 84443; 84484; 85014; 85018; 85025; 85610; 85730; 86850; 86900; 86901; 86920; 87641; 88307; 88309; 93005; A9270-GY; C1769; C2617; J0694; J1170; J1885; J2250; J2270; J2370; J2405; J2710; J3010; J3411; J3475; P9016; P9045